=== PATIENT | male | born 1995 | race Caucasian/White ===

== ENCOUNTER 2016-12-29 21:45 | Emergency (ER) | payer OTHER ==
[~2016-12-29 21:45] MED LIST: FLONASE 0.05% N16 G1; ZYRTEC10 M2
== END 2016-12-29 22:52 | disposition home or self-care (01) ==
LOC: SED 21:45
DX: S46.912A Strain of unspecified muscle, fascia and tendon at shoulder and upper arm level, left arm, initial encounter (principal); R03.0 Elevated blood-pressure reading, without diagnosis of hypertension; Z88.0 Allergy status to penicillin; Z88.1 Allergy status to other antibiotic agents; X58.XXXA Exposure to other specified factors, initial encounter; Y92.9 Unspecified place or not applicable
CPT/HCPCS: 99283